=== PATIENT | female | born 1975 ===

== ENCOUNTER → 2020-12-24 | Outpatient (CLI) | payer OTHER ==
[2020-12-25 18:06] LABS: HPV 16 Negative (Negative); HPV 18 Negative (Negative); HPV OTHER HR TYPES Negative (Negative)
== END ==
LOC: LAB 11:23 → LAB SHORT 11:23
PROVIDERS: Family Medicine
DX: Z01.419 Encounter for gynecological examination (general) (routine) without abnormal findings (principal)
CPT/HCPCS: 87624; G0123

== ENCOUNTER → 2021-01-07 | Outpatient (CLI) | payer OTHER | LOC: PLD 13:25 → LAB SHORT 13:25 | DX: R87.610 Atypical squamous cells of undetermined significance on cytologic smear of cervix (ASC-US) (principal); D26.0 Other benign neoplasm of cervix uteri | CPT/HCPCS: 88305 ==

== ENCOUNTER → 2022-04-01 | Outpatient (CLI) | payer OTHER | END | disposition home or self-care (01) | LOC: LAB SHORT 17:03 | DX: G43.909 Migraine, unspecified, not intractable, without status migrainosus (principal); R35.0 Frequency of micturition | CPT/HCPCS: 87086 ==

== ENCOUNTER → 2022-07-05 | Outpatient (CLI) | payer OTHER ==
[2022-07-07 15:10] LABS: HPV 16 Negative (Negative); HPV 18 Negative (Negative); HPV OTHER HR TYPES Negative (Negative)
== END ==
LOC: LAB SHORT 14:01 → LAB 14:01
PROVIDERS: Family Medicine
DX: Z01.419 Encounter for gynecological examination (general) (routine) without abnormal findings (principal)
CPT/HCPCS: 87624; G0123

== ENCOUNTER → 2022-08-02 | Outpatient (CLI) | payer OTHER ==
[2022-08-05 11:10] LABS: CHLAMYDIA BY NAA Negative (Negative); GONOCOCCUS BY NAA Negative (Negative); TRICH VAG BY NAA Negative (Negative)
== END | disposition home or self-care (01) ==
LOC: LAB SHORT 11:38 → LAB 11:38
PROVIDERS: Family Medicine
DX: Z30.430 Encounter for insertion of intrauterine contraceptive device (principal)
CPT/HCPCS: 87491; 87591; 87661

== ENCOUNTER → 2022-09-13 | Outpatient (CLI) | payer OTHER ==
[2022-09-13 14:36] LABS: Candida species (DNA Probe) Negative (NEGATIVE); G. vaginalis (DNA Probe) Positive (NEGATIVE); T. vaginalis (DNA Probe) Negative (NEGATIVE)
== END | disposition home or self-care (01) ==
LOC: LAB 09:19 → LAB SHORT 09:19
PROVIDERS: Family Medicine
DX: N89.8 Other specified noninflammatory disorders of vagina (principal)
CPT/HCPCS: 87480; 87510; 87660